=== PATIENT | male | born 1970 ===

== ENCOUNTER 2018-06-13 14:45 | Emergency (ER) | payer OTHER ==
[2018-06-13 15:08] VITALS: RESP 18
[2018-06-13 16:42] LABS: BASO # 0.1 K/uL (0.0-0.2); BASO % 0.7 % (0.0-2.0); EOS # 0.1 K/uL (0.0-0.7); EOS % 1.1 % (0.0-4.0); HEMOGLOBIN 14.8 g/dL (12.0-18.0); LYMPH # 2.2 K/uL (1.0-4.3); LYMPH % 22.5 % (20.0-40.0); MEAN CELL VOLUME 90.9 fL (80.0-94.0); MEAN CORPUSCULAR HEMOGLOBIN 30.5 pg (27.0-31.0); MEAN CORPUSCULAR HGB CONC 33.5 g/dL (33.0-37.0); MEAN PLATELET VOLUME 7.8 fL (7.2-11.7); MONO # 0.6 K/uL (0.0-0.8); MONO % 6.6 % (0.0-10.0); NEUT # 6.8 K/uL (1.8-7.0); NEUT % 69.1 % (50.0-75.0); RBC 4.87 Mil/uL (4.40-5.90); RED CELL DISTRIBUTION WIDTH 13.2 % (11.5-14.5); WHITE BLOOD COUNT 9.8 K/uL (4.8-10.8)
[2018-06-13 16:57] LABS: ALB/GLOB RATIO 1.6 (1.0-2.1); ALBUMIN 4.4 g/dL (3.5-5.0); ALT/SGPT 44 U/L (21-72); AST/SGOT 40 U/L (17-59); BLOOD UREA NITROGEN 10 mg/dL (9-20); GFR NON-AFRICAN AMERICAN > 60
[2018-06-13] MEDS ORDERED: Clindamycin 600mg/50ml D5W 600 MG/50 ML VIAL IVPB SCH (17:00)
[2018-06-13] MEDS ORDERED: Clindamycin 600mg/50ml NS 600 MG/50 ML BAG IVPB ONE (17:14)
--- NOTE | 2018-06-13 17:55 | C.PDOC ---
History Of Present Illness 47 year old male with no medical problems presents to the ED with complaints of multiple lesions all around his body. Patient describes the lesions as small abscesses which he has been experiencing intermittently for two years. Patient reports an abscess to his left hand that is streaking up his left arm and causing him concern. He denies fever, chills, and pain, but is very tender to touch. Time Seen by Provider: 06/13/18 16:01 Chief Complaint (Nursing): Abnormal Skin Integrity History Per: Patient History/Exam Limitations: no limitations Onset/Duration Of Symptoms: Intermittent Episodes, Other (two years) Current Symptoms Are (Timing): Still Present Location Of Injury: Left: Arm, Hand, Posterior: Buttock Quality Of Symptoms: Painful Past Medical History Reviewed: Historical Data, Nursing Documentation, Vital Signs Vital Signs: Last Vital Signs Temp 98.4 F 06/13/18 15:03 Pulse 74 06/13/18 15:03 Resp 18 06/13/18 15:03 BP 110/68 06/13/18 15:03 Pulse Ox 98 06/13/18 15:03 - Medical History PMH: No Chronic Diseases Surgical History: No Surg Hx Family History: States: No Known Family Hx - Social History Hx Alcohol Use: No Hx Substance Use: No Review Of Systems Except As Marked, All Systems Reviewed And Found Negative. Constitutional: Negative for: Fever, Chills Skin: Positive for: Lesions (diffuse) Physical Exam - Physical Exam Appears: Non-toxic, No Acute Distress, Other (well-built male) Skin: Warm, Dry, Other (multiple healing lesions to buttocks and toso bilaterally. One healing lesion to left hand, streaking up his left arm. ) Head: Atraumatic, Normacephalic Eye(s): bilateral: Normal Inspection, PERRL, EOMI Oral Mucosa: Moist Neck: Normal, Supple Chest: Symmetrical, No Tenderness Cardiovascular: Rhythm Regular, No Murmur Respiratory: Normal Breath Sounds, No Rales, No Rhonchi, No Wheezing Extremity: Normal ROM Neurological/Psych: Oriented x3, Normal Speech ED Course And Treatment - Laboratory Results Result Diagrams: 06/13/18 16:38 06/13/18 16:38 O2 Sat by Pulse Oximetry: 98 (RA) Pulse Ox Interpretation: Normal Medical Decision Making Medical Decision Making: Plan: CMP CBC Cleocin 600mg PO Blood Culture Urine Culture Patient offered admission for lymphadenitis and refused to stay. Patient given antibiotics and discharged, requested to follow-up in clinic. Disposition - Disposition Referrals: [facility] [Outside] Disposition: HOME/ ROUTINE Disposition Time: 18:24 Condition: STABLE Prescriptions: Clindamycin [Cleocin] 1 cap PO QID #30 cap Forms: [facility] (Ecuadorean), Gen Discharge Inst Ecuadorean - Clinical Impression Clinical Impression: Skin lesion, Lymphadenitis - Scribe Statement The provider has reviewed the documentation as recorded by the Scribe (Feliciano Bowden) Provider Attestation: All medical record entries made by the Scribe were at my direction and personally dictated by me. I have reviewed the chart and agree that the record accurately reflects my personal performance of the history, physical exam, medical decision making, and the department course for this patient. I have also personally directed, reviewed, and agree with the discharge instructions and disposition.
[2018-06-13 18:30] VITALS: BP 101/65; PULSE 54; TEMP 98
[2018-06-13 18:37] VITALS: O2SAT 98
== END 2018-06-13 18:35 | disposition home or self-care (01) ==
LOC: C.ER 14:45
DX: L98.9 Disorder of the skin and subcutaneous tissue, unspecified (principal); I88.9 Nonspecific lymphadenitis, unspecified